=== PATIENT | female | born 1965 | race African-American/Black ===

== ENCOUNTER 2016-06-14 05:52 | Day surgery (SDC) | payer OTHER ==
[2016-05-30 12:07] VITALS: BMI 21.2
[2016-06-13 11:51] VITALS: Ht 165.1 cm; Wt 70.0 kg
[2016-06-14] VITALS (10 sets, daily range): BP systolic 106–127; BP diastolic 68–85; PULSE 66–74; RESP 14–18
[~2016-06-14] VITALS: Ht 165.1 cm; Wt 70.0 kg
[~2016-06-14 05:52] MED LIST: CEFAZOLIN 2 GM/50 ML (PMX) 50 ML IVPB ONE; CEFAZOLIN 2 GM/50 ML (PMX) 50 ML IVPB SCH
[2016-06-14] MEDS ORDERED: LIDOCAINE 1%/EPI 30 ML INJ ONE (06:49)
[2016-06-14] MEDS ORDERED: BACITRACIN/POLYMYXIN 28.35 GM OINT TOP ONE (06:50)
--- NOTE | 2016-06-14 06:59 | HPN ---
Date/Time of Note Date/Time of Note DATE: 06/14/16 TIME: 06:59 Interval H&P Admission Note Pt. seen H&P reviewed: No system changes MAYUR MYERS MD Jun 14, 2016 06:59
[2016-06-14] MEDS ORDERED: BUPIVACAINE 0.25%/EPI (SDV) 30 ML INJ ONE (07:22)
[2016-06-14] MEDS ORDERED: PROPOFOL 60 ML ONE (07:28)
[2016-06-14] MEDS ORDERED: HYDROCODONE/APAP (5/325) TAB PO PRN (07:30)
[2016-06-14] MEDS ORDERED: OXYCODONE/ACETAMINOPHEN (5/325) TAB PO PRN ×3 (07:30→08:30)
[2016-06-14] MEDS ORDERED: ONDANSETRON 4 MG INJ IV PRN ×2 (07:30→08:30)
[2016-06-14] MEDS ORDERED: morphine 2 MG INJ IV PRN (07:30)
--- NOTE | 2016-06-14 07:31 | OPR ---
Date/Time of Note Date/Time of Note DATE: 06/14/16 TIME: 07:29 Operative Report Free Text/Dictation Plastic Surgery Operative Report Preoperative diagnosis: right upper quadrant mass Postoperative diagnosis: same Procedure:excision of right upper quadrant mass Surgeon: rito Georges.:n/a Anesthesia:general EBL:min IV fluids:per flow sheet Findings:n/a Complications:none Dispo: home Indications for procedure: 50-year-old female presents today for excision of a right upper quadrant abdominal mass. The risks, benefits, alternatives of performing this procedure were discussed with the patient including the risks of bleeding, infection, wound healing problems, mass recurrence, need for revision, and the patient states that she understands these risks and would like to proceed with the procedure. All questions were answered, no guarantees were given with regards to the outcome of this procedure. Description of procedure: The patient was brought to the operating room at [facility] general anesthesia was induced. Next the patient was prepped and draped in usual sterile fashion. A total of 5 cc of a mix of 0.25% marcaine with 1:200,000 epi and 1% lidocaine with 1: 100,000 epinephrine were injected into the planned incision site in the inframammary fold. Next, the 15 blade was used to make an incision in the inframammary fold. Electrocautery was then used to dissect down through the subcutaneous tissue to the surface of the mass. The mass was carefully dissected away from the surrounding tissues using the electrocautery and also blunt dissection. A large soft fatty appearing mass was then removed. Additionally, there were 3 small pedunculated masses that were fatty in nature and multilobulated. These were removed as well. Total size of the excised mass was 6 x6cm. next, the cavity was irrigated with saline, hemostasis was achieved with electrocautery, a total of 6 cc of the same local anesthetic solution were injected into the cavity, and then the incision was closed with 3-0 Vicryl sutures and 4-0 Monocryl sutures and was dressed with Dermabond. The patient tolerated the procedure well, there were no complications, follow-up information and wound care instructions were given. MAYUR MYERS MD Jun 14, 2016 07:31
[2016-06-14] MEDS ORDERED: CEFAZOLIN 1 GM INJ ONE (07:39)
[2016-06-14] MEDS ORDERED: LIDOCAINE 2% (SDV) 5 ML INJ ONE (07:39)
[2016-06-14] MEDS ORDERED: DEXAMETHASONE 4 MG/ML 1 ML INJ ONE (08:00)
[2016-06-14] MEDS ORDERED: ONDANSETRON 4 MG INJ ONE (08:00)
[2016-06-14] MEDS ORDERED: MEPERIDINE 25 MG INJ ONE (08:29)
[2016-06-14] MEDS ORDERED: LABETALOL HCL 20MG INJ IV PRN (08:30)
[2016-06-14] MEDS ORDERED: HYDROmorphONE (0.2 MG/ML) 10ML SYG IV PRN ×3 (08:30)
[2016-06-14] MEDS ORDERED: MEPERIDINE 25 MG INJ IV PRN (08:30)
[2016-06-14] MEDS ORDERED: EPHEDrine SULFATE 50 MG/5 ML SYG IV PRN (08:30)
[2016-06-14] MEDS ORDERED: FENTAnyl 50 MCG/ML VIAL IV PRN ×3 (08:30)
== END 2016-06-14 09:40 | disposition home or self-care (01) ==
LOC: SDS 05:52
PROVIDERS: ATTEND Surgery Plastic and Reconstructive Surgery
DX: D17.1 Benign lipomatous neoplasm of skin and subcutaneous tissue of trunk (principal); I10 Essential (primary) hypertension
CPT/HCPCS: 22903; 88307; J0690; J1100; J2175; J2405; J3010; Z7512; Z7610